=== PATIENT | male | born 1960 | race Caucasian/White ===

== ENCOUNTER → 2024-12-19 06:59 | Outpatient (REF) | payer OTHER, SELFPAY ==
[2024-12-19 09:06] LABS: % Basophils 0.7 % (0-2); % Eosinophils 7.1 % (0-6); % Immature Granulocytes 0.4 % (0-0.5); % Lymphocytes 21.3 % (20.5-51.1); % Monocytes 13.8 % (1.7-9.3); % Neutrophils 56.7 % (42.2-75.2); Absolute Eosinophils 0.2 10^3/uL (0-0.7); Absolute Lymphocytes 0.6 10^3/uL (1.2-3.4); Absolute Monocytes 0.4 10^3/uL (0.1-0.6); Absolute Neutrophils 1.6 10^3/uL (1.4-6.5); Hematocrit 41.6 % (39.0-52.0); Hemoglobin 14.1 g/dL (13.0-18.0); Mean Corp Hgb Conc. 33.9 g/dL (33.0-37.0); Mean Corpuscular Hgb 32.2 pg (27.0-31.0); Nucleated Red Blood Cells % 0 % (-); Platelet Count 219 10^3/uL (130-400); Red Blood Cell Count 4.38 10^6/uL (4.70-6.10); Red Cell Dist. Width 11.9 % (11.5-14.5); White Blood Cell Count 2.8 10^3/uL (4.8-10.8)
[2024-12-19 09:41] LABS: ALT (SGPT) 54 U/L (0-50); AST (SGOT) 61 U/L (17-59); Albumin 4.7 g/dl (3.5-5.0); Alkaline Phosphatase 76 U/L (38-126); Blood Urea Nitrogen 28 mg/dl (9-20); Calcium 9.9 mg/dl (8.4-10.2); Carbon Dioxide 27 mmol/L (22-30); Chloride 107 mmol/L (98-107); Glucose 112 mg/dl (70-99); HDL Cholesterol 43 mg/dl; LDL Cholesterol, Calculated 134 mg/dl; Potassium 4.8 mmol/L (3.5-5.1); Sodium 143 mmol/L (135-145); Total Bilirubin 0.8 mg/dl (0.2-1.3); Total Cholesterol 211 mg/dl (50-199); Total Protein 8.7 g/dl (6.3-8.2); Triglyceride 173 mg/dl (10-149); Very Low Density Lipoprotein 34 mg/dl (0-30); eGFR > 60.00
[2024-12-19 10:04] LABS: TSH Reflex To Free T4 1.66 uIU/ml (0.47-4.68)
[2024-12-19 10:21] LABS: Hepatitis C Antibody Reactive (Negative)
[2024-12-20 18:14] LABS: PSA Total 0.4 ng/mL (0.0-4.0)
[2024-12-20 20:59] LABS: HCV Quant by NAAT IU/mL 14600000 IU/mL; HCV Quant by NAAT Interp Detected (Not Detected); HCV Quant by NAAT Log IU/mL 7.16 log IU/mL
== END ==
LOC: RSP 06:59
DX: F17.200 Nicotine dependence, unspecified, uncomplicated (principal); R06.02 Shortness of breath; Z11.59 Encounter for screening for other viral diseases; Z12.5 Encounter for screening for malignant neoplasm of prostate; N17.9 Acute kidney failure, unspecified; Z13.220 Encounter for screening for lipoid disorders; Z13.29 Encounter for screening for other suspected endocrine disorder
CPT/HCPCS: 36415; 71046; 71271; 80053; 80061; 84153; 84154; 84443; 85025; 86803; 87522; 87902

== ENCOUNTER 2025-05-29 14:55 | Emergency (ER) | payer OTHER, SELFPAY ==
[2025-05-29 15:04] VITALS: BP 128/76
[2025-05-29 15:24] LABS: Hematocrit 39.3 % (39.0-52.0); Hemoglobin 13.8 g/dL (13.0-18.0); Mean Corp Hgb Conc. 35.1 g/dL (33.0-37.0); Mean Corpuscular Volume 94.9 fL (80.0-94.0); Nucleated Red Blood Cells % 0 % (-); Platelet Count 208 10^3/uL (130-400); Red Cell Dist. Width 11.2 % (11.5-14.5)
[2025-05-29 15:45] LABS: Troponin I < 0.012 ng/ml
[2025-05-29 15:49] LABS: ALT (SGPT) 42 U/L (0-50); AST (SGOT) 41 U/L (17-59); Albumin 4.6 g/dl (3.5-5.0); Alkaline Phosphatase 65 U/L (38-126); Blood Urea Nitrogen 28 mg/dl (9-20); Calcium 9.5 mg/dl (8.4-10.2); Carbon Dioxide 23 mmol/L (22-30); Chloride 109 mmol/L (98-107); Glucose 104 mg/dl (70-99); Potassium 4.6 mmol/L (3.5-5.1); Sodium 140 mmol/L (135-145); Total Protein 8.5 g/dl (6.3-8.2); eGFR 56.13
--- NOTE | 2025-05-29 16:19 | ED.GENMED ---
History of Present Illness
General
Chief Complaint: Abnormal Lab Value
Time Seen by Provider: 05/29/25 16:19
History of Present Illness
History of Present Illness:
FOCUSED PAST MEDICAL HISTORY
- History of COPD, hep C
REVIEW OF OLD RECORDS
- I reviewed records, the patient was admitted with [facility] in September 2023. At that time it was documented the patient has a history of opioid-abuse and DVT/PE.
Note:
CHIEF COMPLAINT(S)
Elevated potassium level identified in outpatient blood work.
HISTORY OF PRESENT ILLNESS
The patient, a 64-year-old male, presented following notification from his primary care physician regarding an outpatient blood test indicating a potassium level of 6.5 mEq/L. The test was conducted approximately five days ago. The patient was
asymptomatic but was advised to come in immediately due to the elevated potassium level with a normal reference range being approximately 3.5 - 5.0 mEq/L.
The patient underwent a repeat potassium test today, which returned a normal result of 4.5 mEq/L, indicating that the initial high reading could have resulted from sample hemolysis. There were no significant cardiac symptoms reported, and an
electrocardiogram (EKG) was performed as a precautionary measure, which showed no concerning findings.
The patient reports feeling tired but attributes this to aging and a recent muscle pull with a pinched nerve in the left arm. He mentioned no symptoms indicative of cardiac issues, and there were no significant additional symptoms reported.
The patient has a history of Chronic Obstructive Pulmonary Disease (COPD), although he questions its accuracy. He also shared some recent stressors, including familial issues and the recent loss of his brother, highlighting the psychosocial effects
on his well-being.
EXTERNAL RECORDS REVIEWED
Recent outpatient blood work from his primary care physician indicating elevated potassium.
CHRONIC MEDICAL CONDITIONS SIGNIFICANTLY AFFECTING CARE
Chronic Obstructive Pulmonary Disease (COPD)
SOCIAL DETERMINANTS AFFECTING HEALTH
The patient mentioned increased family involvement in recent years. He also experienced stress due to familial changes and bereavement over his brother�s passing.
PHYSICAL EXAM
General: Alert, no acute distress.
Skin: Warm, dry.
Head: Normocephalic, atraumatic.
Neck: Supple, trachea midline.
Eye, Ears, Nose, Mouth and Throat: Oral mucosa moist.
Cardiovascular: Normal peripheral perfusion, no edema.
Respiratory: Respirations are non-labored.
Gastrointestinal: Abdomen nondistended.
Back: Normal range of motion, normal alignment.
Musculoskeletal: Normal range of motion, normal strength.
Neurological: Alert and oriented to person, place, time, and situation. No focal neurological deficit observed.
Psychiatric: Cooperative, appropriate mood and affect.
PROBLEM LIST
Acute:
- Elevated potassium level (initial concern, resolved on repeat testing)
Chronic:
- Chronic Obstructive Pulmonary Disease (COPD)
PLAN
Conducted an EKG to ensure no cardiac effects due to the initial potassium level concern, which was resolved. Provided reassurance regarding normal kidney function and electrolyte levels. Patient was advised that, should the potassium level reach
7.0 mEq/L, admission would be necessary. Discharged home with follow-up recommended as needed.
DIFFERENTIAL DIAGNOSIS
The Differential Diagnosis includes, in no particular order and is not limited to:
1. Pseudohyperkalemia due to hemolysis
2. Chronic Kidney Disease
3. Acute Kidney Injury
4. Primary Hyperaldosteronism
5. Addisons Disease
6. Type IV Renal Tubular Acidosis
7. Congestive Heart Failure
8. Medication-induced Hyperkalemia (e.g., LEA inhibitors, ARBs)
9. Rhabdomyolysis
10. Aldosterone deficiency
Disposition:
SUMMARY OF ENCOUNTER
The 64-year-old male patient was seen in the emergency department following a report from his primary care physician about an elevated potassium level of 6.5 mEq/L discovered in outpatient blood work. During this visit, a repeat potassium test
indicated a normal level of 4.6 mEq/L, addressing concerns for hyperkalemia. An electrocardiogram (EKG) was performed to rule out cardiac effects, and it showed no concerning findings. The patient had been experiencing fatigue, which he attributed
to aging and muscle strain. No cardiac symptoms were noted, and the patient was otherwise asymptomatic.
DISPOSITION
Discharge.
PLAN
Provided reassurance regarding normal kidney function and explained that if potassium levels exceed 7.0 mEq/L, it would necessitate admission. Recommended follow-up with the primary care physician as needed.
INDEPENDENT REVIEW OF LABS AND INTERPRETATION OF TESTS
My independent review of the Basic Metabolic Panel (BMP) indicates a normal potassium level of 4.5 mEq/L.
PATIENT EDUCATION AND COUNSELING
Educated the patient on normal kidney function and the importance of monitoring potassium levels, advising on when hospitalization would be necessary.
FOLLOW-UP INSTRUCTIONS
Advised the patient to follow up with his primary care physician for ongoing management.
MEDICAL DECISION MAKING
- Number and Complexity of Problems Addressed: Chronic conditions affecting care include Chronic Obstructive Pulmonary Disease (COPD) and the initial concern of elevated potassium. Differential diagnoses considered were pseudohyperkalemia due to
hemolysis, Chronic Kidney Disease, Acute Kidney Injury, Primary Hyperaldosteronism, Addisons Disease, Type IV Renal Tubular Acidosis, Congestive Heart Failure, Medication-induced Hyperkalemia, Rhabdomyolysis, and Aldosterone deficiency.
- Data:
Category 1
- Non-emergency department records reviewed: Reviewed patients recent outpatient blood work.
- Clinical information was obtained from an independent historian: External records from the primary care physician were reviewed.
Category 2
- My independent interpretation of EKG indicated normal results with no concerning findings.
- Risk: Consideration of Admission/Observation was made, and it was concluded that the patient is safe for outpatient management with close follow-up. The reasoning includes reassuring test results, lack of acute symptoms, stable vitals, and patient
reliability for follow-up. Social determinants of health, including recent family stressors and bereavement, were also considered.
DIAGNOSIS
- Encounter for observation for suspected conditions ruled out, ICD-10: Z03.89
- History of Chronic Obstructive Pulmonary Disease (COPD), ICD-10: J44.9
EKG
- Sinus 69, left axis deviation, right bundle branch block
LABS
- Creatinine 1.4, potassium 4.6 takes, troponin less than 0.012
Phy Exam
Physical Exam
Physical Exam:
See HPI
Course
Orders/Labs/Results
Orders:
Orders
05/29/25 15:09
Electrocardiogram (*1) Urgent
Reason for Study: Fatigue / Weakness
05/29/25 15:10
EKG- Treatment ONCE
05/29/25 15:12
CMP [Comprehensive Metabolic Panel] Urgent
Complete Blood Count/With Diff Urgent
Troponin I Urgent
Abnormal Lab Results
05/29/25
15:12
WBC 3.3 L 10^3/uL
(4.8-10.8)
RBC 4.14 L 10^6/uL
(4.70-6.10)
MCV 94.9 H fL
(80.0-94.0)
MCH 33.3 H pg
(27.0-31.0)
RDW 11.2 L %
(11.5-14.5)
Absolute Lymphs (auto) 0.7 L 10^3/uL
(1.2-3.4)
Immature Gran % 0.6 H %
(0-0.5)
Monocytes % 11.8 H %
(1.7-9.3)
Chloride 109 H mmol/L
(98-107)
BUN 28 H mg/dl
(9-20)
Creatinine 1.4 H mg/dL
(0.7-1.3)
Glucose 104 H mg/dl
(70-99)
Total Protein 8.5 H g/dl
(6.3-8.2)
05/29/25 15:12
05/29/25 15:12
Vital Signs
Initial and Last Documented VS:
Initial Vital Signs
Temp Pulse Resp BP Pulse Ox
36.9 C 72 18 128/76 95
05/29/25 15:04 05/29/25 15:04 05/29/25 15:04 05/29/25 15:04 05/29/25 15:04
Last Documented Vital Signs
Temp Pulse Resp BP Pulse Ox
36.9 C 72 18 128/76 95
05/29/25 15:04 05/29/25 15:04 05/29/25 15:04 05/29/25 15:04 05/29/25 16:20
*Pulse Oximetry
SaO2: 95
Oxygen Mode of Delivery: Room air
Patient hypoxic: no
*Critical Care Note
Total Time (30-74mins, 75-104mins- exclusive of procedures): Not Applicable
ED Attending Note
-
Portions of this chart may have been created with voice recognition software.� Occasional wrong word or��sound alike� substitutions may have occurred due to the inherent limitations of voice recognition software.
Discharge Plan
Departure
Patient Disposition: Home (Routine Discharge)
Date of Disposition: 05/29/25
Time of Disposition: 16:38
Patient with high blood pressure during this ER visit?: Yes
Discharge Problem:
Encounter for medical assessment
Prescriptions:
No Action
multivitamin Tablet
1 tab PO DAILY
acetaminophen 325 mg Tablet
650 mg PO BIDPRN PRN (Reason: pain/fever)
prazosin 1 mg Capsule
1 mg PO HS
gabapentin 300 mg Capsule
300 mg PO BID
Xarelto 20 mg Tablet
20 mg PO DAILY
doxycycline hyclate 100 mg Capsule
100 mg PO Q12 5 Days Qty: 10 0RF
buprenorphine HCl 2 mg Tablet, Sublingual
4 mg sublingual DAILY 2 Days Qty: 4 0RF
Activity Restrictions/Additional Instructions:
Your potassium level is normal at 4.6. Your kidney function is borderline. Your hemoglobin level is normal at 13.8. Your vital signs are normal. Return here if worse or other concerns.
Interventions
Interventions:
*General Assessment Last Done: 05/29/25 16:39
*ED- Fall Risk Assessment Last Done: 05/29/25 16:39
*ED COVID-19 Vaccine History Last Done: 05/29/25 16:39
Discharge Date and Time
Print Language: AZERI
[2025-05-29 16:39] VITALS: BMI 28.9
[2025-05-29 16:44] VITALS: BP 131/92
[2025-05-29 16:52] VITALS: BP 131/92
== END 2025-05-29 16:56 | disposition home or self-care (01) ==
LOC: EMR 14:55
PROVIDERS: Physician Assistant Medical; EMERGENCY PHYSICIAN Emergency Medicine; FAMILY PHYSICIAN Psychologist
DX: Z04.89 Encounter for examination and observation for other specified reasons (principal); J44.9 Chronic obstructive pulmonary disease, unspecified; Z86.19 Personal history of other infectious and parasitic diseases
CPT/HCPCS: 99284; 80053; 84484; 85025; 93005

== ENCOUNTER 2025-06-21 15:13 | Emergency (ER) | payer OTHER, SELFPAY ==
[2025-06-21 15:20] VITALS: BP 161/101
--- NOTE | 2025-06-21 16:02 | ED.GENMED ---
History of Present Illness
General
Chief Complaint: Skin Surface Trauma
Source: patient
Time Seen by Provider: 06/21/25 15:27
History of Present Illness
History of Present Illness:
64-year-old male with past medical history of previous pulmonary embolisms, hepatitis C, COPD presenting to the emergency department for evaluation after a media stand cabinet fell onto his right lower extremity causing him to sustain a laceration
to the right medial gastrocnemius. Patient was able to dress the wound and presented to the ER with hemostasis achieved. No other injuries were sustained. Tetanus vaccine is up to date.
Past History
Past History
ED Past Medical History: COPD and Other (Hepatitis C)
ED Past Surgical History: Orthopedic
Social History
Tobacco: Smoker
Alcohol: None
Drug: None
Personal: Single
Living: alone
Review of Systems
Review of Systems
All Other Systems: ROS reviewed and negative except as documented in HPI and ROS
Phy Exam
Physical Exam
Physical Exam:
GENERAL: Alert , in no apparent distress
EYE: conjunctiva clear
Head: Normocephalic atraumatic
NECK: Supple,
ENT: mmm.
LUNGS: no acute respiratory distress
NEUROLOGICAL: Alert and oriented
SKIN: Warm and dry, 1 cm superficial laceration along the medial aspect of the mid gastrocnemius. Mild bleeding but no arterial spurting, bleeding controlled with pressure
MUSCULOSKELETAL: well perfused.
PSYCH: Normal and appropriate interaction.
Scores
Heart Failure Risk
Heart Failure Risk Score: Not Applicable
Heart Score for Chest Pain Patients
STEMI patient?: Not applicable
Withdrawal Assessment of Alcohol
Withdrawal Assessment Completed?: Not applicable
Course
Vital Signs
Initial and Last Documented VS:
Initial Vital Signs
Temp Pulse Resp BP Pulse Ox
97.1 F 72 16 161/101 97
06/21/25 15:20 06/21/25 15:20 06/21/25 15:20 06/21/25 15:20 06/21/25 15:20
Last Documented Vital Signs
Temp Pulse Resp BP Pulse Ox
97.1 F 72 16 161/101 97
06/21/25 15:20 06/21/25 15:20 06/21/25 15:20 06/21/25 15:20 06/21/25 16:02
Procedures
Laceration Closure
Right Lower Leg:
Status of Wound: clean
Size of Wound in cm: 1
Description of Wound Edges: sharp
Preparation: cleaned with saline
Anesthesia: 1% Lidocaine with epi
Type of Closure: single layer closure
Skin Closure Material: 4-0 nylon
Number of sutures: 3
MDM/Problems Addressed
Differential Diagnosis Includes:
Simple laceration
I do not have concern for fracture
No concern for compartment syndrome
MDM/Problems Addressed:
64-year-old male presenting the ER for evaluation of minor laceration sustained to the right lower extremity. Laceration repaired as above without difficulty. Patient advised on wound care. Suture removal in 10 to 12 days. Aware of return
precautions to the ER
*Pulse Oximetry
SaO2: 97
Oxygen Mode of Delivery: Room air
Patient hypoxic: no
*Critical Care Note
Total Time (30-74mins, 75-104mins- exclusive of procedures): Not Applicable
ED Attending Note
-
Portions of this chart may have been created with voice recognition software.� Occasional wrong word or��sound alike� substitutions may have occurred due to the inherent limitations of voice recognition software.
Discharge Plan
Departure
Patient Disposition: Home (Routine Discharge)
Date of Disposition: 06/21/25
Time of Disposition: 16:02
Patient with high blood pressure during this ER visit?: Yes
Discharge Problem:
Laceration of lower leg, right
Instructions: Laceration Repair With Stitches (DC)
Prescriptions:
No Action
multivitamin Tablet
1 tab PO DAILY
acetaminophen 325 mg Tablet
650 mg PO BIDPRN PRN (Reason: pain/fever)
prazosin 1 mg Capsule
1 mg PO HS
gabapentin 300 mg Capsule
300 mg PO BID
Xarelto 20 mg Tablet
20 mg PO DAILY
doxycycline hyclate 100 mg Capsule
100 mg PO Q12 5 Days Qty: 10 0RF
buprenorphine HCl 2 mg Tablet, Sublingual
4 mg sublingual DAILY 2 Days Qty: 4 0RF
Activity Restrictions/Additional Instructions:
Suture removal in 10-12 days
Interventions
Interventions:
*Risk Screen - Suicide Last Done: 06/21/25 15:20
*General Assessment Last Done: 06/21/25 15:20
*Neglect/Abuse Screening Last Done: 06/21/25 15:20
*ED COVID-19 Vaccine History Last Done: 06/21/25 15:20
*ED Influenza Vaccine History Last Done: 06/21/25 15:20
Discharge Date and Time
Print Language: NEPALI
== END 2025-06-21 16:26 | disposition home or self-care (01) ==
LOC: EMR 15:13
PROVIDERS: EMERGENCY PHYSICIAN Emergency Medicine
DX: S81.811A Laceration without foreign body, right lower leg, initial encounter (principal); W20.8XXA Other cause of strike by thrown, projected or falling object, initial encounter; J44.9 Chronic obstructive pulmonary disease, unspecified; F17.200 Nicotine dependence, unspecified, uncomplicated; Z86.711 Personal history of pulmonary embolism; Z86.19 Personal history of other infectious and parasitic diseases
CPT/HCPCS: 99282; 12001

== ENCOUNTER 2025-09-05 06:14 | Day surgery (SDC) | payer OTHER, SELFPAY | END 2025-09-05 09:38 | disposition home or self-care (01) | LOC: GI 06:14 | PROVIDERS: ATTENDING PHYSICIAN Student in an Organized Health Care Education/Training Program | DX: Z12.11 Encounter for screening for malignant neoplasm of colon (principal); K63.5 Polyp of colon; K62.1 Rectal polyp | CPT/HCPCS: 45385; 45380; 88305 ==